=== PATIENT | male | born 2005 | race Caucasian/White ===

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

== ENCOUNTER → 2023-02-23 09:32 | Outpatient (BNVA) | payer OTHER, SELFPAY | PROVIDERS: Family Provider Family Medicine; PCP Family Medicine; Visit Provider Emergency Medicine | DX: J02.9 Acute pharyngitis, unspecified (principal) | CPT/HCPCS: 87071; 87880 ==

== ENCOUNTER → 2023-03-11 09:22 | Outpatient (BNVA) | payer MEDICAID, OTHER, SELFPAY | PROVIDERS: Family Provider Family Medicine; PCP Family Medicine; Visit Provider Emergency Medicine | DX: J02.9 Acute pharyngitis, unspecified (principal); R22.1 Localized swelling, mass and lump, neck | CPT/HCPCS: 70360; 87070; 87077; 87184 ==

== ENCOUNTER → 2023-12-10 15:06 | Outpatient (BNVA) | payer MEDICAID, SELFPAY | PROVIDERS: Family Provider Family Medicine; PCP Family Medicine; Visit Provider Emergency Medicine | DX: J02.9 Acute pharyngitis, unspecified (principal); B34.9 Viral infection, unspecified | CPT/HCPCS: 87071; 87400; 87880 ==

== ENCOUNTER → 2023-12-12 12:01 | Outpatient (BNVA) | payer MEDICAID, SELFPAY | PROVIDERS: Family Provider Family Medicine; PCP Family Medicine; Visit Provider Emergency Medicine | DX: J98.8 Other specified respiratory disorders (principal); B97.89 Other viral agents as the cause of diseases classified elsewhere | CPT/HCPCS: 87400; 87426 ==

== ENCOUNTER → 2024-04-03 10:09 | Outpatient (BNVA) | payer MEDICAID, SELFPAY | PROVIDERS: Family Provider Family Medicine; PCP Family Medicine; Visit Provider Family Medicine | DX: F90.2 Attention-deficit hyperactivity disorder, combined type; Z51.81 Encounter for therapeutic drug level monitoring | CPT/HCPCS: 80053; 80061; 83036; 84443 ==

== ENCOUNTER 2025-05-06 14:22 | Emergency (ER) | payer OTHER, SELFPAY ==
--- OUTSIDE RECORDS SUMMARY | 2020-03-22 07:54 | XMS_ITS | Continuity of Care Document ---
Author Organization [facility], Former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, [address], [address], tel:[phone] [facility] No Information 0 No Information Referring Provider: ELOISA BLAIR, [address], [place], [address]. tel:[phone] Family History Family Member Type Diagnosis Age At Onset Maternal Grandmother Problem (finding) Hypertension Paternal Grandmother Problem (finding) Hypertension Mother Problem (finding) Arrhythmia Problem (finding) No family hist ory of Premature CAD Problem (finding) No family history of Guzmán dden Paternal Grandfather Problem (finding) Hypertension Problem (finding) No family hist ory of Diabetes Mellitus Problem (finding) No family hist ory of Cardiomyopathy - dilated Father Problem (finding) Congenital Heart Diseas e Problem (finding) No family hist ory of Cardiomyopathy - hypertrophic Paternal Uncle Problem (finding) Hypertension Payers Payer name Insurance type Covered constitution party ID Authoriza tion(s) [facility] [id number] Social History Type Description Quantity Date Captured Comments Alcohol Use Details Unknown Caffeine Use Details Unknown Tobacco Use Status No Information Smoking Status Never smoker Sex Male Vital Signs Date / Time: Height Weight BMI Pulse Rate Blood Pressure Temperature Respiratory Rate Body Surface Area Head Circumference BMI percentile Pulse Ox Inhaled Ox 12:56 PM 73.00 in 70.307 kg (155.00 lbs) 20.5 0 kg/m eter (2) 20 /min 1.90 meter(2) 44 Chief Complaint And Reason For Visit No Information History Of Present Illness Encounter Date Complaint History Of Prese nt Illness No Information Instructions Date Instruction Additional Infor mation No Information Assessments Type Assessment Date No Information
--- NOTE | 2025-05-06 14:24 | ECG_ITS ---
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 Measurements Intervals Beyer Rate: 61 P: 50 KS: 142 QRS: 61 QRSD: 106 T: 68 QT: 393 QTc: 396 Interpretive Statements SINUS RHYTHM WITH SINUS ARRHYTHMIA No previous ECG available for comparison Electronically Signed On 05-08-2025 08:16:36 CDT by Yair Khan M.D. [id number]
--- NOTE | 2025-05-06 14:24 | XRR_ITS ---
PROCEDURE INFORMATION: Exam: XR Chest Exam date and time: 05/06/2025 2:32 PM Age: 19 years old Clinical indication: Pain; Chest pressure; Additional info: Chest pain TECHNIQUE: Imaging protocol: Radiologic exam of the chest. Views: 1 view. COMPARISON: No relevant prior studies available. FINDINGS: Lungs: No infiltrates. No suspicious masses or nodules. Pleural spaces: No pleural effusions or pneumothorax. Heart/Mediastinum: Heart size within normal limits. No pulmonary vascular congestion. Bones/joints: No significant osseous lesion. No fractures. XR/XR chest 1V portable [id number] IMPRESSION: No acute cardiopulmonary findings radiographically.
[2025-05-06 14:31] VITALS: BP 132/77; PULSE 57; RESP 16; TEMP 36.7; O2SAT 99
[2025-05-06 15:34] LABS: Hematocrit 50.1 % (37-53); Hemoglobin 16.60 g/dL (11.27-16.99); Mean Corpuscular HGB Conc 33.1 g/dL (30-55); Mean Corpuscular Hemoglobin 29.1 pg (27-33); Mean Corpuscular Volume 87.9 fl (82-101); Nucleated Red Blood Cells % 0 %; Platelet Count 274 10^3/cmm (157-399); Red Blood Count 5.70 10^6/uL (3.85-5.65); White Blood Count 9.18 10^3/uL (3.29-11.43)
[2025-05-06] MEDS: lidocaine 2% viscous 15 ML, aluminum-mag hydrox-simethicon 30 ML, sucralfate oral liq 1 GM PO (15:42)
[2025-05-06 15:46] VITALS: BP 130/84; PULSE 75; RESP 21; O2SAT 98
[2025-05-06 15:56] LABS: Alanine Aminotransferase 10 U/L (0-41); Albumin Level 4.9 g/dL (3.5-5.2); Alkaline Phosphatase 78 U/L (40-130); Anion Gap 16.4 (5-19); Aspartate Amino Transferase 12 U/L (0-40); Blood Urea Nitrogen 10 mg/dL (6-20); Calcium 10.5 mg/dL (8.5-10.5); Carbon Dioxide 26 mmol/L (22-29); Chloride 102 mmol/L (98-107); Creatinine Clr Calc Pharmacy 111.5024; Globulin 2.5 g/dL (1.3-4.6); Glucose 94 mg/dL (65-115); Lipase 33 U/L (13-60); Osmolality Calculated 289 mOsm/kg (285-295); Potassium 4.4 mmol/L (3.5-5.1); Sodium 140 mmol/L (136-145); Total Protein 7.4 g/dL (6.6-8.7)
[2025-05-06 15:57] LABS: Troponin(5th) Baseline < 6 ng/L (0-15)
--- NOTE | 2025-05-06 16:38 | W.ED.ABDPA2 ---
HPI - Abdominal Pain General: Chief Complaint: Abdominal Pain Stated Complaint: chest pain Time Seen by Provider: 05/06/25 15:08 Source: patient Mode of arrival: ambulatory Limitations: no limitations History of Present Illness: Patient is a 19-year-old male with history of bicuspid aorta who presents to the emergency department complaining of epigastric pain since Wednesday. He states that on night he had about 6 or 7 twisted teas and that he woke up with the burning sensation to the epigastric region. States that he took Tums and this helped his symptoms quite a bit, but symptoms have since come back and Tums have not been as effective. Pain does not radiate, specifically no tearing back pain or radiation of the back at all. States he has felt mildly nauseous, does not report any specific alleviating or exacerbating factor for his pain. No lightheadedness or dizziness. No palpitations or shortness of breath. MD elicited complaint: abdominal pain Pertinent past history: other (Bicuspid aorta) Onset (ago): day(s) Pain Consistency: intermittent Location: Epigastric Severity: moderate Quality: burning Radiation: none Relieving factors: nothing Context: other (Occurred after binge drinking episode) Associated Symptoms: Reports belching, heartburn and nausea; Denies bloating, change in stool character, chills, constipation, diarrhea, dysuria, fever(s), hematochezia and vomiting Treatments prior to arrival: antacids Related Data Home Medications ?Medication ?Instructions ?Recorded ?Confirmed fexofenadine 180 mg tablet 180 mg PO DAILY PRN allergies 05/06/25 05/06/25 (Vikki Allergy) fluticasone propionate 50 1 spray intranasal BID PRN 05/06/25 05/06/25 mcg/actuation nasal allergies spray,suspension (Flonase Allergy Relief) Previous Rx's ?Medication ?Instructions ?Recorded epinephrine 0.3 mg/0.3 mL 0.3 mg (0.3 mL) IM Q10M PRN 04/03/24 injection, auto-injector (EpiPen anaphylaxis #2 ea 2-Suleiman) hydroxyzine HCl 25 mg tablet 25 - 50 mg (1 - 2 x 25 mg) PO .at 02/21/25 bedtime PRN for difficulty sleeping #60 tabs metoprolol succinate 25 mg 12.5 mg (1/2 x 25 mg) PO DAILY 90 02/21/25 tablet,extended release 24 hr days #45 tabs omeprazole 20 mg capsule,delayed 20 mg PO DAILY #30 caps 05/06/25 release Allergies Allergy/AdvReac Type Severity Reaction Status Date / Time cashew nut Allergy Severe Anaphylaxis Verified 02/21/25 08:42 amphetamine (From Adderall Allergy Mild ADR-Vomitin Verified 02/21/25 08:42 XR) g dextroamphetamine (From Allergy Mild ADR-Vomitin Verified 02/21/25 08:42 Adderall XR) g Cephalosporins Allergy Unknown Unknown Verified 02/21/25 08:42 Review of Systems General: Reports: 10 or more systems reviewed and unremarkable except in HPI and below Const: Denies: fever(s), chills, change in appetite, change in weight or diaphoresis ENMT: Denies: throat pain or hoarseness Card: Denies: chest pain, palpitations or lightheadedness Resp: Denies: dyspnea, productive cough or wheezing GI: Reports: abdominal pain, nausea, heartburn and belching; Denies: vomiting, diarrhea, constipation, bloating, change in stool character or hematochezia : Denies: flank pain, difficulty urinating, dysuria, urinary frequency or urinary urgency Musc: Denies: neck pain or back pain Skin/Breast: Denies: rash or new lesions Neuro: Denies: headache(s) or dizziness PFSH ED PFSH: Medical History Bicuspid aortic valve Enlarged aorta Chronic post-traumatic stress disorder Depression Seasonal allergies Hx of 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 Hypertension Losartan discontinued due to low blood pressure Oppositional defiant disorder Attention deficit hyperactivity disorder (ADHD), combined type, mild Social History Smoking and tobacco/nicotine status: current every day tobacco/nicotine user Second hand smoke exposure: No Alcohol intake: never Substance/Drug Use: never Physical Exam Const: COMMON NORMALS: no acute distress, average body habitus, patient oriented x3, no limitations, healthy appearing, alert and well nourished GENERAL APPEARANCE: cooperative and comfortable ORIENTATION/CONSCIOUSNESS: Yes awake Eye: COMMON NORMALS: Equal, round and reactive pupils present, EOMs intact bilaterally, conjunctivae normal and normal visual palma by confrontation CONJUNCTIVA: Yes conjunctivae normal PUPIL: Yes Equal, round and reactive pupils present Neck/C-Spine: COMMON NORMALS: full ROM, supple, no meningeal signs and no JVD Resp: COMMON NORMALS: normal respiratory effort, No retractions, No use of accessory muscles and clear to auscultation bilaterally AUSCULTATION: clear to auscultation bilaterally, no crackles, no rales, no rhonchi and no wheezes Cardio: COMMON NORMALS: no JVD, regular rate, regular rhythm, S1 normal heart sound present, S2 normal heart sound present, No gallops present (Cardio), No clicks present (Cardio), No murmurs present (Cardio), No rub (Cardio) and Peripheral pulses 2+ throughout RATE: regular rate RHYTHM: regular rhythm HEART SOUNDS: S1 normal heart sound present and S2 normal heart sound present PERIPHERAL PULSES: Peripheral pulses 2+ throughout GI: COMMON NORMALS: Normal to inspection, nondistended, normoactive bowel sounds present, Soft to palpation, No hepatosplenomegaly present and no masses AUSCULTATION: Yes normoactive bowel sounds PALPATION: Yes Soft to palpation, Yes Tenderness to palpation present (GI) (Epigastric), No Guarding due to palpation present (GI), No Rigid due to palpation and Yes No hepatosplenomegaly present RECTAL EXAM: Yes deferred Extremity: COMMON NORMALS: normal to inspection and full ROM Neuro: COMMON NORMALS: patient oriented x3, moves all extremities, no focal motor deficits and no sensory deficits noted SENSORIUM/ORIENTATION: Yes alert MENINGEAL SIGNS: Yes no meningeal signs Psych: COMMON NORMALS: mental status grossly normal, cooperative and speech normal SPEECH: Yes normal speech Skin: COMMON NORMALS: no rashes or lesions noted GENERAL SKIN EXAM: no rashes or lesions noted Course Vital Signs: Vital signs: Vital Signs Temperature 98.0 F 05/06/25 14:31 Pulse Rate 75 05/06/25 15:46 Respiratory Rate 21 H 05/06/25 15:46 Blood Pressure 130/84 05/06/25 15:46 Pulse Oximetry 98 05/06/25 15:46 Oxygen Delivery Me thod Room Air 05/06/25 14:31 MDM - Abdominal Pain Medical Decision Making Patient presenting with epigastric pain for the past few days, this was preceded by binge drinking episode. Took some Tums and this helped initially but has not been as effective. History of bicuspid aortic, he endorsed anxiety over this being related to his heart. EKG reviewed physician was unremarkable for any acute ST segment changes or ischemic changes. X-ray negative did not show any mediastinal widening or other concerns. Troponin undetectable, rest of labs were normal. He was given GI cocktail and his symptoms do feel better. I suspect that this is GERD, he will be started on omeprazole to take once daily and we discussed other conservative approach to treating this at home. He is encouraged to follow-up with regular provider as needed and return with any new or worsening. I have very low suspicion that this is cardiac in nature. Lab Data 05/06/25 15:11 05/06/25 15:11 Labs/Radiology: Radiology Impressions Chest X-Ray 05/06/25 14:24 IMPRESSION: No acute cardiopulmonary findings radiographically. Laboratory Results WBC 9.18 10^3/uL (3.29-11.43) 05/06/25 15:11 RBC 5.70 10^6/uL (3.85-5.65) H 05/06/25 15:11 Hgb 16.60 g/dL (11.27-16.99) 05/06/25 15:11 Hct 50.1 % (37-53) 05/06/25 15:11 MCV 87.9 fl (82-101) 05/06/25 15:11 MCH 29.1 pg (27-33) 05/06/25 15:11 MCHC 33.1 g/dL (30-55) 05/06/25 15:11 RDW 12.8 % (12.1-15.1) 05/06/25 15:11 Plt Count 274 10^3/cmm (157-399) 05/06/25 15:11 MPV 10.7 fL (7.4-10.4) H 05/06/25 15:11 Neut % (Auto) 73.1 % 05/06/25 15:11 Lymph % (Auto) 20.4 % 05/06/25 15:11 [place] % (Auto) 5.2 % 05/06/25 15:11 Eos % (Auto) 0.4 % 05/06/25 15:11 Baso % (Auto) 0.7 % 05/06/25 15:11 Neut # (Auto) 6.71 10^3/uL (1.8-7.7) 05/06/25 15:11 Lymph # (Auto) 1.9 10^3/uL (0.8-4.8) 05/06/25 15:11 [place] # (Auto) 0.5 10^3/uL (0.2-0.9) 05/06/25 15:11 Eos # (Auto) 0.0 10^3/uL (0.0-0.8) 05/06/25 15:11 Baso # (Auto) 0.1 10^3/uL (0.0-0.1) 05/06/25 15:11 Nucleated RBC % (auto) 0 % 05/06/25 15:11 Nucleated RBCs # 0.0 /100WBC 05/06/25 15:11 Sodium 140 mmol/L (136-145) 05/06/25 15:11 Potassium 4.4 mmol/L (3.5-5.1) 05/06/25 15:11 Chloride 102 mmol/L (98-107) 05/06/25 15:11 Carbon Dioxide 26 mmol/L (22-29) 05/06/25 15:11 Anion Gap 16.4 (5-19) 05/06/25 15:11 BUN 10 mg/dL (6-20) 05/06/25 15:11 Creatinine 1.1 mg/dL (0.7-1.2) 05/06/25 15:11 GFR Calculation 84.5 mL/min (90-130) L 05/06/25 15:11 Glucose 94 mg/dL (65-115) 05/06/25 15:11 Calculated Osmolality 289 mOsm/kg (285-295) 05/06/25 15:11 Calcium 10.5 mg/dL (8.5-10.5) 05/06/25 15:11 Total Bilirubin 0.9 mg/dL (0.15-1.2) 05/06/25 15:11 AST 12 U/L (0-40) 05/06/25 15:11 ALT 10 U/L (0-41) 05/06/25 15:11 Alkaline Phosphatase 78 U/L (40-130) 05/06/25 15:11 Troponin T Baseline < 6 ng/L (0-15) 05/06/25 15:11 Total Protein 7.4 g/dL (6.6-8.7) 05/06/25 15:11 Albumin 4.9 g/dL (3.5-5.2) 05/06/25 15:11 Globulin 2.5 g/dL (1.3-4.6) 05/06/25 15:11 Lipase 33 U/L (13-60) 05/06/25 15:11 All radiology interpretation(s) finalized by discharge Discharge Plan Discharge Patient Disposition: Home Clinical Impression: GERD (gastroesophageal reflux disease) Condition: Stable Prescriptions: New omeprazole 20 mg capsule,delayed release(DR/EC) 20 mg PO DAILY Qty: 30 0RF No Action epinephrine [EpiPen 2-Suleiman] 0.3 mg/0.3 mL auto-injector 0.3 mg IM Q10M PRN (Reason: anaphylaxis) Qty: 2 0RF Rx Instructions: for 2 doses metoprolol succinate 25 mg tablet extended release 24 hr 12.5 mg PO DAILY 90 Days Qty: 45 2RF hydroxyzine HCl 25 mg tablet 25 - 50 mg PO .at bedtime PRN (Reason: for difficulty sleeping) Qty: 60 5RF fexofenadine [Vikki Allergy] 180 mg tablet 180 mg PO DAILY PRN (Reason: allergies) fluticasone propionate [Flonase Allergy Relief] 50 mcg/actuation spray,suspension 1 spray intranasal BID PRN (Reason: allergies) Rx Instructions: administer into each nostril Discharge Orders: Discharge ED (Routine); Ordered 05/06/25 Ordered By: Itz Arellano Referrals: Neeraj Ramos MD [Primary Care Provider, Family Practice] Patient Instructions: Patient Portal & Debora Instructions Activity Restrictions/Additional Instructions: GERD discharge instructions Diagnosis today: Gastroesophageal reflux disease (GERD). The heart workup was negative. Medicine - Start omeprazole 20 mg once daily. - How to take it: Take the pill 30?60 minutes before breakfast with water. Taking it before a meal helps the medicine work best. - Treatment length: Plan for a 4?8 week trial. If symptoms are much better at 8 weeks, it is reasonable to try stopping or using the lowest dose that controls symptoms. - If symptoms are not better after 4?8 weeks despite taking it correctly, let the care team know. The dose may be adjusted or testing considered. What to expect - Many people feel improvement within several days, but it can take 1?2 weeks for full effect. - If symptoms go away, the plan is to use the lowest effective dose, and consider on-demand use if appropriate. Not everyone needs long-term daily therapy. Lifestyle steps that help reflux - Avoid late meals: Do not eat within 2?3 hours of bedtime. - Elevate the head of the bed for nighttime symptoms (use blocks under bedposts or a wedge pillow). - Identify and limit personal trigger foods/drinks (commonly alcohol, spicy foods, chocolate). - Weight management if overweight; quitting tobacco products if used. - Consider a Mediterranean-style diet; some find alkaline water helpful. Safety and side effects - Omeprazole is widely used and generally safe. Possible side effects include headache, stomach upset, diarrhea or constipation. - Some studies have suggested risks with long-term use (e.g., gut infections, low minerals, kidney issues), but the evidence is not definitive. Use the lowest dose that controls symptoms and review the need for ongoing therapy over time. - Do not stop suddenly if symptoms are severe; instead, contact the care team to plan dose changes. When to seek medical care urgently - Chest pain that is new, severe, or different from usual reflux, especially with shortness of breath, sweating, or radiation to arm/jaw (call emergency services). - Trouble or pain with swallowing, vomiting blood, black stools, unintentional weight loss, persistent vomiting, or anemia. These are ?alarm? symptoms and need prompt evaluation. Follow-up plan - Follow up with primary care or gastroenterology in 4?8 weeks to review symptom response and medication plan. - If symptoms do not improve on correctly timed daily omeprazole after 8 weeks, or if they return after stopping, additional evaluation (such as endoscopy or reflux monitoring) may be recommended. - If long-term daily therapy is needed, the dose should be the lowest that controls symptoms, with periodic reassessment. How to take this medicine correctly matters - Take omeprazole 30?60 minutes before breakfast every day. - If a dose is missed, take it the next day as usual (do not double up). Questions or concerns - For worsening symptoms, side effects, or questions about the plan, contact the care team. If severe chest pain occurs again, seek emergency care. Print Language: Slovenian Coding Level of Care Code ED Chronometer Assembler for Daija Andrews
[2025-05-06 16:43] VITALS: BP 130/80; PULSE 88; O2SAT 98
== END 2025-05-06 16:45 | disposition home or self-care (01) ==
PROVIDERS: Emergency Medicine; Emergency Provider Physician Assistant
DX: K21.9 Gastro-esophageal reflux disease without esophagitis (principal); Z72.0 Tobacco use; I10 Essential (primary) hypertension
CPT/HCPCS: 36415; 71045; 80053; 83690; 84484; 85025; 93005; 99285; J9999